=== PATIENT | female | born 1965 | race Caucasian/White ===

== ENCOUNTER 2019-07-15 09:58 | Outpatient (RCR) | payer MEDICARE, MEDICAID, SELFPAY | END 2019-08-13 00:01 | LOC: MPT 09:58 | PROVIDERS: Family Provider Family Medicine; Visit Provider Licensed Practical Nurse | DX: M51.17 Intervertebral disc disorders with radiculopathy, lumbosacral region (principal) | CPT/HCPCS: 97110; 97140; 97161; 97530 ×2 ==

== ENCOUNTER 2019-08-14 06:00 | Outpatient (RCR) | payer MEDICARE, MEDICAID, SELFPAY | END 2019-09-13 23:00 | disposition home or self-care (01) | LOC: MPO 06:00 | PROVIDERS: Family Provider Family Medicine; Visit Provider Family Medicine | DX: M51.36 Other intervertebral disc degeneration, lumbar region (principal) | CPT/HCPCS: 97110; 97140; 97530 ==

== ENCOUNTER 2019-09-09 09:10 | Emergency (ER) | payer MEDICARE, MEDICAID, SELFPAY ==
[2019-09-09 09:41] VITALS: BP 160/108; PULSE 73; RESP 20; TEMP 36.7; O2SAT 95; BMI 42.5
--- NOTE | 2019-09-09 10:05 | ED_ITS ---
HPI - Abdominal Pain General: Chief Complaint: Abdominal Pain Stated Complaint: Upper ABD pain, weak, n/v Time Seen by Provider: 09/09/19 10:02 History of Present Illness: HPI narrative: Betty is a 53-year-old morbidly obese white female who presents with a one-day history of epigastric pain, nausea vomiting and diarrhea. Patient states she's had her gallbladder removed and a total hysterectomy in the past. She states she doesn't feel nauseated and however when the pain hits she will vomit. Denies any blood in her stool or vomit. Associated Symptoms: Reports diarrhea, nausea and vomiting; Denies chills, dysuria and fever(s) Review of Systems Const: Denies: fever or chills Eyes: Denies: change in vision ENMT: Denies: throat pain Card: Reports: chest pain (epigastric); Denies: palpitations Resp: Denies: shortness of breath, productive cough or stridor GI: Reports: abdominal pain (epigastric), nausea, vomiting and diarrhea : Denies: flank pain, difficulty urinating or painful urination Musc: Denies: neck pain or back pain Skin/Breast: Denies: rash Neuro: Denies: headache Psych: Denies: anxiety PFSH ED PFSH: Statuses (acute, chronic, etc) shown below reflect problem list status as previously entered and may not be historically accurate Family History (Updated 09/06/19 @ 11:09 by Kacie Lozoya LPN) Grandmother Breast cancer Stroke Grandfather Heart disease Mother Parkinsons disease Social History (Updated 09/06/19 @ 11:12 by Kacie Lozoya LPN) Smoking and tobacco status: never smoked Alcohol intake: never Lives independently: Yes Household members: family Housing: House Marital status: / Current occupational status: disabled History of recent travel: No Physical Exam Const: COMMON NORMALS: no apparent distress, oriented x3 and no limitations HENMT: COMMON NORMALS: normocephalic and external nose normal HEAD & SCALP: normocephalic NOSE: external nose normal Eye: COMMON NORMALS: PERRL, EOMs intact bilaterally and conjunctivae normal CONJUNCTIVA: Yes conjunctivae normal PUPIL: Yes PERRL Neck/C-Spine: COMMON NORMALS: full ROM and no meningeal signs Chest: COMMONS NORMALS: inspection of chest normal Resp: COMMON NORMALS: normal respiratory effort and no retractions EFFORT & INSPECTION: Yes able to speak in complete sentences GI: COMMON NORMALS: normal to inspection, nondistended, normoactive bowel sounds and soft to palpation PALPATION: Yes soft and Yes tender (mild tenderness mid epigastric region) Back/Pelvis: COMMON NORMALS: thoracic and lumbar spine normal to inspection Extremity: COMMON NORMALS: normal to inspection and full ROM Neuro: COMMON NORMALS: oriented x3 and moves all extremities MENINGEAL SIGNS: Yes no meningeal signs Psych: COMMON NORMALS: mental status grossly normal, cooperative and affect normal Skin: COMMON NORMALS: no rashes or lesions noted GENERAL SKIN EXAM: no rashes or lesions noted Course Reevaluation(s): Reevaluation #1: patient reassessed. Discussed with her that her CT scan shows nothing acute. She does have some diverticulosis but no evidence of diverticulitis. Patient states she does suffer from intermittent heartburn which she treats with Tums. I advised her we will start her on a daily stomach acid medication as uncontrolled heartburn can lead to Gabriel's esophagus. She does not want any nausea medication at this time. She was more concerned about her heart. We'll discharge her home. Time: 12:34 Vital Signs: Vital signs: Vital Signs Temperature 98.0 F 09/09/19 09:41 Pulse Rate 73 09/09/19 09:41 Respiratory Rate 20 H 09/09/19 09:41 Blood Pressure 160/108 09/09/19 09:41 Pulse Oximetry 95 09/09/19 09:41 MDM - Abdominal Pain Differential Diagnosis: Differential diagnosis abdominal pain: Likely abdominal pain, calculus of kidney, gastroenteritis, pancreatitis and small bowel obstruction Medical Records: Attestation: I reviewed the patient's medical records. Lab Data: Attestation: I reviewed the patient's lab results. Lab results narrative: Labs show mild hematuria. Troponin is negative. Otherwise nothing acute. Labs: Lab Results 09/09/19 09/09/19 09/09/19 Range/Units 10:12 10:12 10:12 WBC 8.8 (4.0-10.0) 10^3/ uL RBC 4.99 (4.1-5.3) 10^6/u L Hgb 13.5 (11.5-15.3) g/dL Hct 43.1 (37.0-47.0) % MCV 86.4 (81-99) fL MCH 27.1 L (28.0-34.0) pg MCHC 31.3 (30.0-36.0) g/dL RDW 12.8 (12.1-15.1) % Plt Count 258 (130-400) 10^3/c mm MPV 10.3 (7.4-10.4) fL Neut % (Auto) 82.9 % Lymph % (Auto) 13.4 % [place] % (Auto) 2.5 % Eos % (Auto) 0.8 % Baso % (Auto) 0.2 % Neut # (Auto) 7.3 (1.8-7.7) 10^3/u L Lymph # (Auto) 1.2 (0.8-4.8) 10^3/u L [place] # (Auto) 0.2 (0.2-0.9) 10^3/u L Eos # (Auto) 0.1 (0.0-0.8) 10^3/u L Baso # (Auto) 0.0 (0.0-0.1) 10^3/u L Nucleated RBC % (a uto) 0 % Nucleated RBCs # 0.0 /100WBC Sodium 136 (136-145) mmol/L Potassium 4.3 (3.5-5.1) mmol/L Chloride 100 (98-107) mmol/L Carbon Dioxide 24 (22-29) mmol/L Anion Gap 16.3 (5-19) BUN 10 (6-20) mg/dL Creatinine 0.8 (0.5-0.9) mg/dL GFR Calculation 75.0 L (90-130) mL/min Glucose 156 H (74-109) mg/dL Calcium 10.3 (8.5-10.5) mg/dL Magnesium 2.0 (1.7-2.3) mg/dL Total Bilirubin 0.3 (0.15-1.2) mg/dL AST 15 (0-32) U/L ALT 19 (0-33) U/L Alkaline Phosphata se 80 (35-105) IU/L Troponin T Gen 5 n g/L 6 (0-10) ng/mL Total Protein 8.2 (6.6-8.7) g/dL Albumin 4.5 (3.5-5.2) g/dL Globulin 3.7 (1.3-4.6) g/dL Lipase (13-60) U/L Urine Color (Yellow) Urine Appearance (CLEAR) Urine pH (5-7) Ur Specific Gravit y (1.005-1.030) Urine Protein (Negative) Urine Glucose (UA) (Normal) Urine Ketones (Negative) Urine Occult Blood (Negative) Urine Nitrate (Negative) Urine Bilirubin (NEGATIVE) Urine Urobilinogen (Negative) mg/dL Ur Leukocyte Tavia ase (Negative) Urine RBC (0-2) /hpf Urine WBC (0-5) /hpf Ur Squamous Epith Cells (0-5) Urine Bacteria (NONE) 09/09/19 09/09/19 Range/Units 10:12 10:22 WBC (4.0-10.0) 10^3/ uL RBC (4.1-5.3) 10^6/u L Hgb (11.5-15.3) g/dL Hct (37.0-47.0) % MCV (81-99) fL MCH (28.0-34.0) pg MCHC (30.0-36.0) g/dL RDW (12.1-15.1) % Plt Count (130-400) 10^3/c mm MPV (7.4-10.4) fL Neut % (Auto) % Lymph % (Auto) % [place] % (Auto) % Eos % (Auto) % Baso % (Auto) % Neut # (Auto) (1.8-7.7) 10^3/u L Lymph # (Auto) (0.8-4.8) 10^3/u L [place] # (Auto) (0.2-0.9) 10^3/u L Eos # (Auto) (0.0-0.8) 10^3/u L Baso # (Auto) (0.0-0.1) 10^3/u L Nucleated RBC % (a uto) % Nucleated RBCs # /100WBC Sodium (136-145) mmol/L Potassium (3.5-5.1) mmol/L Chloride (98-107) mmol/L Carbon Dioxide (22-29) mmol/L Anion Gap (5-19) BUN (6-20) mg/dL Creatinine (0.5-0.9) mg/dL GFR Calculation (90-130) mL/min Glucose (74-109) mg/dL Calcium (8.5-10.5) mg/dL Magnesium (1.7-2.3) mg/dL Total Bilirubin (0.15-1.2) mg/dL AST (0-32) U/L ALT (0-33) U/L Alkaline Phosphata se (35-105) IU/L Troponin T Gen 5 n g/L (0-10) ng/mL Total Protein (6.6-8.7) g/dL Albumin (3.5-5.2) g/dL Globulin (1.3-4.6) g/dL Lipase 27 (13-60) U/L Urine Color Yellow (Yellow) Urine Appearance Clear (CLEAR) Urine pH 6.0 (5-7) Ur Specific Gravit y 1.015 (1.005-1.030) Urine Protein Neg (Negative) Urine Glucose (UA) Norm (Normal) Urine Ketones Negative (Negative) Urine Occult Blood 2+ H (Negative) Urine Nitrate Negative (Negative) Urine Bilirubin Neg (NEGATIVE) Urine Urobilinogen Norm (Negative) mg/dL Ur Leukocyte Tavia ase Negative (Negative) Urine RBC 0-4 H (0-2) /hpf Urine WBC None (0-5) /hpf Ur Squamous Epith Cells 0-4 H (0-5) Urine Bacteria Trace (NONE) Imaging Data ^: CT Abd/Pel: Attestation: I personally reviewed and interpreted this imaging study as follows: Radiologist's impression: IMPRESSION: 1. No evidence for appendicitis or renal stone/obstruction. 2. Prior cholecystectomy and hysterectomy. 3. Fat-containing umbilical hernia. 4. Descending and sigmoid diverticulosis without acute diverticulitis. Discharge Plan Discharge Patient Disposition: Home, Self-Care Clinical Impression: Gastroenteritis Gastroesophageal reflux disease Qualifiers: Esophagitis presence: esophagitis presence not specified Qualified Code(s): K21.9 - Gastro-esophageal reflux disease without esophagitis Condition: Stable Prescriptions: New omeprazole 20 mg capsule,delayed release(DR/EC) 20 mg PO BID Qty: 60 RF: 0 No Action tizanidine 4 mg capsule 4 mg PO TID PRNRF: 0 meloxicam 7.5 mg tablet 7.5 mg PO QDAY RF: 0 lisinopril 5 mg tablet 5 mg PO QDAY RF: 0 montelukast 10 mg tablet 10 mg PO QDAY RF: 0 triamcinolone acetonide 0.1 % cream 1 applic TOPICAL BID PRNRF: 0 Discharge Orders: Discharge Order (Routine); Ordered 09/09/19 Ordered By: Pretty Brown Referrals: Katty Oneill MD [Family Provider] - Discharge Diet: Usual diet Discharge Activity: Resume usual activity Patient Instructions: Diet for Ulcers and Gastritis (ED), Gastroesophageal Reflux Disease (ED) Activity Restrictions/Additional Instructions: Drink plenty of fluids. Avoid spicy and acidic foods for the next 2 days. Begin taking omeprazole as directed. Follow up with their family doctor and discuss outpatient EGD referral with him at that time. Return if any problems. 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
--- NOTE | 2019-09-09 10:07 | ECG_ITS ---
Measurements Intervals [place] Rate: 68 P: 5 MD: 158 QRS: 31 QRSD: 94 T: 40 QT: 400 QTc: 428 SINUS RHYTHM No previous ECG available for comparison Electronically Signed On 09-09-2019 17:51:59 COMMUNITY PRODUCT SPECIALIST by Laura Quispe M.D. [email or web address]
[2019-09-09 10:18] LABS: Basophils % 0.2 %; Eosinophils # 0.1 10^3/uL (0.0-0.8); Eosinophils % 0.8 %; Hematocrit 43.1 % (37.0-47.0); Hemoglobin 13.5 g/dL (11.5-15.3); Lymphocytes # 1.2 10^3/uL (0.8-4.8); Lymphocytes % 13.4 %; Mean Corpuscular HGB Conc 31.3 g/dL (30.0-36.0); Mean Corpuscular Hemoglobin 27.1 pg (28.0-34.0); Mean Corpuscular Volume 86.4 fL (81-99); Mean Platelet Volume 10.3 fL (7.4-10.4); Monocytes # 0.2 10^3/uL (0.2-0.9); Monocytes % 2.5 %; Neutrophils # 7.3 10^3/uL (1.8-7.7); Neutrophils % 82.9 %; Nucleated Red Blood Cells % 0 %; Platelet Count 258 10^3/cmm (130-400); Red Blood Count 4.99 10^6/uL (4.1-5.3); Red Cell Distribution Width 12.8 % (12.1-15.1); White Blood Count 8.8 10^3/uL (4.0-10.0)
--- NOTE | 2019-09-09 10:21 | PC.NURSE ---
Patient to restroom for urine collection
[2019-09-09 10:33] LABS: Alanine Aminotransferase 19 U/L (0-33); Albumin Level 4.5 g/dL (3.5-5.2); Alkaline Phosphatase 80 IU/L (35-105); Anion Gap 16.3 (5-19); Aspartate Amino Transferase 15 U/L (0-32); Blood Urea Nitrogen 10 mg/dL (6-20); Calcium 10.3 mg/dL (8.5-10.5); Carbon Dioxide 24 mmol/L (22-29); Chloride 100 mmol/L (98-107); Globulin 3.7 g/dL (1.3-4.6); Glucose 156 mg/dL (74-109); Potassium 4.3 mmol/L (3.5-5.1); Sodium 136 mmol/L (136-145); Total Bilirubin 0.3 mg/dL (0.15-1.2); Total Protein 8.2 g/dL (6.6-8.7)
[2019-09-09 10:35] LABS: Troponin T (5th) Once 6 ng/mL (0-10)
[2019-09-09 10:52] LABS: Add Urine Microscopic? YES; Bilirubin Urine Neg (NEGATIVE); Blood Urine 2+ (Negative); Glucose Urine UA Norm (Normal); Ketones Urine Negative (Negative); Leukocyte Esterase Urine Negative (Negative); Nitrate Urine Negative (Negative); Protein Urine Neg (Negative); Specific Gravity, Urine 1.015 (1.005-1.030); Urine Appearance Clear (CLEAR); Urine Color Yellow (Yellow); Urobilinogen Urine Norm (Negative)
[2019-09-09 11:01] LABS: Add Urine Culture? No; Bacteria Urine TRACE; RBC Urine 0-4 /hpf (0-2); Squamous Epithelial Cell Urine 0-4 (0-5)
--- NOTE | 2019-09-09 11:05 | CT_ITS ---
WS: [id number] CT ABDOMEN AND PELVIS NONCONTRAST HISTORY: hematuria, nausea TECHNIQUE: Imaging performed through the abdomen and pelvis. Coronal and sagittal reformats are submi tted. All CT scans at [facility] use at least one of these dose optimization techniques: automated exposure control; mA and/or kV adjustment per patient size (includes targeted exams where d ose is matched to clinical indication); or iterative reconstruction. DLP: 1766.92 mGy.cm COMPARISON: None available. Lower thorax: Lung bases are clear. No hiatal hernia. Liver: Normal, no mass or intrahepatic dilatation. Gallbladder: Prior cholecystectomy. Pancreas: Normal. Spleen: Normal. Adrenal glands: Normal. Right kidney: Normal size with no stones, masses or atrophy. Left kidney: Normal size with no stones, mass or atrophy. Abdominal aorta and IVC are unremarkable. No free fluid, intraperitoneal air or significant lymphadenopathy. GI tract: Normal appendix. No GI tract obstruction. Numerous scattered diverticula in the descending and sigmoid colon. No evidence for acute diverticulitis. Abdominal wall: Small fat-containing umbilical hernia. Pelvis: Prior hysterectomy. No free fluid or adenopathy in the pelvis. Nondistended urinary bladder. Osseous structures: Unremarkable. CT/CT kidney stone [id number] IMPRESSION: 1. No evidence for appendicitis or renal stone/obstruction. 2. Prior cholecystectomy and hysterectomy. 3. Fat-containing umbilical hernia. 4. Descending and sigmoid diverticulosis without acute diverticulitis.
--- NOTE | 2019-09-09 11:10 | PC.NURSE ---
To CT via stretcher
[2019-09-09 11:12] LABS: Lipase 27 U/L (13-60)
[2019-09-09 12:50] VITALS: BP 145/88; PULSE 68; RESP 14; O2SAT 97
== END 2019-09-09 12:50 | disposition home or self-care (01) ==
PROVIDERS: Emergency Provider Physician Assistant; Family Provider Family Medicine
DX: K52.9 Noninfective gastroenteritis and colitis, unspecified (principal); K21.9 Gastro-esophageal reflux disease without esophagitis
CPT/HCPCS: 36415; 74176; 80053; 81001; 83690; 83735; 84484; 85025; 93005; 99282

== ENCOUNTER 2019-09-14 06:00 | Outpatient (RCR) | payer MEDICARE, MEDICAID, SELFPAY | END 2019-10-12 23:59 | disposition home or self-care (01) | LOC: MPT 06:00 | PROVIDERS: Family Provider Family Medicine; Referring Provider Licensed Practical Nurse; Visit Provider Licensed Practical Nurse | DX: M51.17 Intervertebral disc disorders with radiculopathy, lumbosacral region (principal) | CPT/HCPCS: 97110; 97140; 97530 ==

== ENCOUNTER → 2019-10-02 14:12 | Outpatient (BNVA) | payer MEDICARE, MEDICAID, SELFPAY | PROVIDERS: Family Provider Family Medicine; PCP Family Medicine; Referring Provider Licensed Practical Nurse; Visit Provider Psychiatry & Neurology Neurology | DX: M54.2 Cervicalgia (principal); M79.601 Pain in right arm; M79.602 Pain in left arm; Z87.891 Personal history of nicotine dependence | CPT/HCPCS: 95886; 95910 ==

== ENCOUNTER 2019-10-07 08:22 | Outpatient (CLI) | payer MEDICARE, MEDICAID, SELFPAY ==
--- NOTE | 2019-10-07 08:47 | MR_ITS ---
WS: [id number] MRI CERVICAL SPINE HISTORY: Cervical spine pain. HX ACDFF COMPARISON: 07/05/2019 Straightening of the normal lumbar lordosis. 2 mm anterolisthesis of C4. Anterior cervical fusion fro m C5 to C7 is intact. No edema around the hardware. Complete ankylosis at C5-6 and C6-7 disc spaces. Signal within the cervical cord is normal. Visualized posterior fossa is unremarkable. Craniocervical junction, C1 and C2 relationship, odontoid process and soft tissues are normal. C2-C3: Normal. C3-C4: Mild osteophytic ridging and facet arthritis. Mild RIGHT foraminal narrowing. C4-C5: Slight unroofing of the disc due to anterolisthesis of C4. Slight contact on the cord with a c entral disc protrusion. Bilateral facet arthropathy. Mild central stenosis. C5-C6: Mild annular disc bulging and osteophytic ridging. Contact on the ventral cord with no displac ement. Mild central and bilateral foraminal stenosis. C6-C7: Mild asymmetric disc bulging to the LEFT. No significant stenosis. C7-T1: Normal. Cluster of calcifications just to the RIGHT of the C2 vertebral body has been present on prior studie s and may be granulomatous calcifications. Unchanged since at least 10/24/2017. MR/MR cervical spin wo con* [id number] IMPRESSION: 1. Prior anterior cervical fusion from C5 to C7 with ankylosis at the disc spa anuel. No complication or change. 2. Less than 2 mm anterolisthesis of C4. 3. Mild central and bilateral foraminal narrowing at C4-5. No significant prog ression. 4. Mild disc osteophyte encroachment upon the ventral cord at C4-5 and C5-6 wi thout displacement.
--- NOTE | 2019-10-07 09:30 | XR_ITS ---
WS: [id number] LATERAL CERVICAL SPINE: 3 view. Lateral radiographs are performed in upright neutral, flexion and extension to the patient's toleranc e. HISTORY: Cervical spine pain. HX ACDFF COMPARISON: 07/05/2019 Prior anterior cervical fusion extending from C5 through C7. Plate and screws are intact. No lucency around the hardware. There is very slight anterolisthesis of C4 by less than 2 mm. With flexion and e xtension no significant change. Complete ankylosis across the C5-6 and C5 7 disc spaces. Stable calci fication anterior to the upper cervical spine noted to be in the RIGHT paravertebral soft tissues on prior studies. XR/XR cervical spine fl/ex [id number] IMPRESSION: 1. Stable anterior cervical fusion from C5 to C7 with complete ankylosis acros s the disc spaces. 2. Less than 2 mm anterolisthesis of C4 without instability.
== END 2019-10-07 08:23 | disposition home or self-care (01) ==
PROVIDERS: Family Provider Family Medicine; PCP Family Medicine; Visit Provider Licensed Practical Nurse
DX: M43.22 Fusion of spine, cervical region (principal); M50.020 Cervical disc disorder with myelopathy, mid-cervical region, unspecified level; M25.78 Osteophyte, vertebrae; Z98.1 Arthrodesis status
CPT/HCPCS: 72040; 72141

== ENCOUNTER 2019-10-13 06:00 | Outpatient (RCR) | payer MEDICARE, MEDICAID, SELFPAY | END 2019-11-12 23:59 | disposition home or self-care (01) | LOC: MPT 06:00 | PROVIDERS: Family Provider Family Medicine; PCP Family Medicine; Referring Provider Licensed Practical Nurse; Visit Provider Licensed Practical Nurse | DX: M51.17 Intervertebral disc disorders with radiculopathy, lumbosacral region (principal) | CPT/HCPCS: 97112; 97164 ==

== ENCOUNTER 2020-02-06 11:21 | Outpatient (CLI) | payer MEDICARE, MEDICAID, SELFPAY ==
--- NOTE | 2020-02-06 11:30 | MM_ITS ---
WS: [id number] BILATERAL SCREENING DIGITAL MAMMOGRAM WITH CAD HISTORY: screening breast cancer COMPARISON: 01/25/2016 Bilateral CC and MLO views submitted. Computer aided detection analyzed. Breast composition: There are scattered areas of fibroglandular density. No suspicious masses, microc alcifications or architectural distortion. MM/[place] [id number] IMPRESSION: BI-RADS: 1-Negative FOLLOW UP: 1 Year Follow-up
== END 2020-02-06 11:22 | disposition home or self-care (01) ==
LOC: RADSHAW 11:28
PROVIDERS: PCP Family Medicine; Visit Provider Family Medicine
DX: Z12.31 Encounter for screening mammogram for malignant neoplasm of breast (principal)
CPT/HCPCS: 77067

== ENCOUNTER → 2020-11-19 10:51 | Outpatient (BNVA) | payer MEDICARE, MEDICAID, SELFPAY | PROVIDERS: PCP Family Medicine; Referring Provider Family Medicine; Visit Provider Orthopaedic Surgery | DX: M54.9 Dorsalgia, unspecified (principal) | CPT/HCPCS: 72110 ==

== ENCOUNTER → 2020-12-15 10:44 | Outpatient (BNVA) | payer MEDICARE, MEDICAID, SELFPAY | PROVIDERS: PCP Family Medicine; Referring Provider Orthopaedic Surgery; Visit Provider Anesthesiology Pain Medicine | DX: M48.062 Spinal stenosis, lumbar region with neurogenic claudication (principal); M47.816 Spondylosis without myelopathy or radiculopathy, lumbar region; M51.36 Other intervertebral disc degeneration, lumbar region; M50.020 Cervical disc disorder with myelopathy, mid-cervical region, unspecified level; Z98.1 Arthrodesis status | CPT/HCPCS: 99205 ==

== ENCOUNTER → 2020-12-22 13:14 | Outpatient (BNVA) | payer MEDICARE, MEDICAID, SELFPAY | PROVIDERS: PCP Family Medicine; Visit Provider Anesthesiology Pain Medicine | DX: M47.816 Spondylosis without myelopathy or radiculopathy, lumbar region (principal); M48.062 Spinal stenosis, lumbar region with neurogenic claudication | CPT/HCPCS: 64493; 64494; J3490 ==

== ENCOUNTER → 2021-01-08 09:12 | Outpatient (BNVA) | payer MEDICARE, MEDICAID, SELFPAY | PROVIDERS: PCP Family Medicine; Visit Provider Anesthesiology Pain Medicine | DX: M48.062 Spinal stenosis, lumbar region with neurogenic claudication (principal); M47.816 Spondylosis without myelopathy or radiculopathy, lumbar region; M51.36 Other intervertebral disc degeneration, lumbar region; M50.020 Cervical disc disorder with myelopathy, mid-cervical region, unspecified level; Z98.1 Arthrodesis status | CPT/HCPCS: 99214 ==

== ENCOUNTER 2021-04-30 07:47 | Outpatient (CLI) | payer MEDICARE, MEDICAID, SELFPAY ==
[2021-04-30 08:25] VITALS: BP 130/78; PULSE 78; RESP 16; TEMP 36.6; O2SAT 96; BMI 44.2
[2021-04-30 09:04] VITALS: BP 136/84; PULSE 86; RESP 18; O2SAT 96
[2021-04-30 10:03] VITALS: BP 121/72; PULSE 77; RESP 18; TEMP 36.7; O2SAT 95
== END 2021-04-30 07:48 | disposition home or self-care (01) ==
PROVIDERS: PCP Family Medicine; Visit Provider Nurse Practitioner Family
DX: U07.1 COVID-19 (principal)
CPT/HCPCS: 96365

== ENCOUNTER → 2021-05-20 13:28 | Outpatient (BNVA) | payer MEDICARE, MEDICAID, SELFPAY | PROVIDERS: PCP Family Medicine; Visit Provider Family Medicine | DX: I10 Essential (primary) hypertension (principal); Z13.6 Encounter for screening for cardiovascular disorders | CPT/HCPCS: 80053; 80061 ==

== ENCOUNTER → 2021-06-30 10:30 | Outpatient (BNVA) | payer MEDICARE, MEDICAID, SELFPAY | PROVIDERS: PCP Family Medicine; Visit Provider Family Medicine | DX: M79.672 Pain in left foot (principal); M77.8 Other enthesopathies, not elsewhere classified; M72.2 Plantar fascial fibromatosis | CPT/HCPCS: 73630 ==

== ENCOUNTER → 2022-02-07 09:36 | Outpatient (BNVA) | payer MEDICARE, MEDICAID, SELFPAY | PROVIDERS: PCP Family Medicine; Visit Provider Family Medicine | DX: I10 Essential (primary) hypertension (principal) | CPT/HCPCS: 80048 ==

== ENCOUNTER → 2022-05-19 10:18 | Outpatient (BNVA) | payer MEDICARE, MEDICAID, SELFPAY | PROVIDERS: PCP Family Medicine; Visit Provider Family Medicine | DX: I10 Essential (primary) hypertension (principal); Z13.220 Encounter for screening for lipoid disorders; Z13.6 Encounter for screening for cardiovascular disorders | CPT/HCPCS: 80053; 80061 ==

== ENCOUNTER 2022-06-01 09:21 | Outpatient (CLI) | payer MEDICARE, MEDICAID, SELFPAY ==
--- NOTE | 2022-06-01 09:42 | MM_ITS ---
WS: [id number] Bilateral screening 3D tomosynthesis digital mammogram, 06/01/2022 Clinical Data: SCREEN Comparison: 02/06/2020, 01/25/2016, 01/26/2011. Findings: The breast parenchymal pattern shows fibroglandular tissue. No spiculated masses or clustered calcifi cations are seen. There are no secondary signs of carcinoma. MM/[place] [id number] Impression: 1. Negative bilateral mammogram unchanged. 2. Recommend annual screening mammograms. BIRADS: 1-Negative FOLLOW UP: 1 Year Follow-up The CAD program checker was used.
== END 2022-06-01 09:22 | disposition home or self-care (01) ==
LOC: RAD 09:21
PROVIDERS: PCP Family Medicine; Visit Provider Family Medicine
DX: Z12.31 Encounter for screening mammogram for malignant neoplasm of breast (principal)
CPT/HCPCS: 77063; 77067

== ENCOUNTER → 2022-11-16 10:26 | Outpatient (BNVA) | payer MEDICARE, MEDICAID, SELFPAY | PROVIDERS: PCP Family Medicine; Visit Provider Family Medicine | DX: I10 Essential (primary) hypertension (principal); K21.9 Gastro-esophageal reflux disease without esophagitis; J44.9 Chronic obstructive pulmonary disease, unspecified; K29.70 Gastritis, unspecified, without bleeding; M48.062 Spinal stenosis, lumbar region with neurogenic claudication; K92.1 Melena | CPT/HCPCS: 80053; 85025 ==

== ENCOUNTER → 2022-12-20 09:45 | Outpatient (BNVA) | payer MEDICARE, MEDICAID, SELFPAY | PROVIDERS: PCP Family Medicine; Visit Provider Surgery | DX: K92.1 Melena (principal); K21.9 Gastro-esophageal reflux disease without esophagitis | CPT/HCPCS: 99203 ==

== ENCOUNTER 2023-01-18 06:04 | Day surgery (SDC) | payer MEDICARE, MEDICAID, SELFPAY ==
[2023-01-16 11:34] VITALS: BMI 44.9
[2023-01-18 06:23] VITALS: BP 144/88; PULSE 68; RESP 16; TEMP 36.1; O2SAT 98
[2023-01-18] MEDS: sodium chloride 0.9% 1,000 ML 30 ML IV (06:35)
--- NOTE | 2023-01-18 07:12 | P.ANESASSM_ITS ---
Pre-Anesthetic Assessment Height/Weight: Height 1.6 m Weight 115.212 kg Temp Pulse Resp BP Pulse Ox O2 Del Method 97 F L 68 16 144/88 98 Room Air 01/18/23 06:23 01/18/23 06:23 01/18/23 06:23 01/18/23 06:23 01/18/23 06:23 01/18/23 06:23 Preop Diagnosis: melena screening Gerd Operation Date: 01/18/23 08:00 Proposed Procedures p 42607 EGD 68677 Colon K92.1,Z12.11,K21.9(Not Applicable) - DO tyree Jama Colonoscopy(Not Applicable) - Sachin Cortez DO Familial anesthetic complications: none Was Beta Attila taken within 24 hours: N/A Was Clonidine taken within 24 hours: N/A Last intake: Intake Last Liquid Date 01/17/23 Last Liquid Time 22:00 Last Solid Date 01/16/23 Last Solid Time 21:00 Social No alcohol and No tobacco (history quit 1998) Exam alert, oriented x 3, clear to auscultation bilaterally and regular rate & rhythm Airway Submandibular: within normal limits Cervical ROM: within normal limits Mallampati: Class II Dentition: full Pulmonary Chronic Obstructive Pulmonary Disease CV/HEM Arrythmia and Hypertension leaky valve conservator artifacts seen last year None reported Hepatic None reported GI Gastroesophageal Reflux Disease (controlled off protonix patient says i was feeling better ) Metabolic Morbid Obesity Musc/skel Fibromyalgia, Lower Back Pain and Osteoarthritis/DJD Neuropsych None reported Anesthetic Plan ASA status: 3 Anesthesia: MAC Risk of > 500 ml blood loss (7ml/kg in children): No Medications/Allergies Home Medications Medication Instructions Recorded Confirmed Last Taken Type miscellaneous medical supply See Rx Instructions miscellaneous 10/14/20 01/16/23 01/16/23 Rx .COMPLEX #1 ea ascorbic acid (vitamin C) 500 mg 500 mg PO DAILY 04/29/21 01/16/23 1 Month Ago History capsule ~12/16/22 [id number] 250 1 tab PO Q6H PRN Migraine Headache 04/29/21 01/16/23 1 Month Ago History mg-250 mg-65 mg tablet (Excedrin ~12/16/22 Extra Strength) cholecalciferol (vitamin D3) 25 25 mcg PO DAILY 04/29/21 01/16/23 1 Month Ago History mcg (1,000 unit) capsule ~12/16/22 cyanocobalamin (vitamin B-12) 500 500 mcg PO DAILY 04/29/21 01/16/23 1 Month Ago History mcg tablet ~12/16/22 montelukast 10 mg tablet 10 mg PO DAILY 90 days #90 tabs 02/07/22 01/16/23 1 Week Ago Rx ~01/09/23 cyclobenzaprine 5 mg tablet 10 mg PO TID PRN muscle spasm #30 11/16/22 01/16/23 01/14/23 Rx tabs pantoprazole 40 mg tablet,delayed 40 mg PO BID 90 days #180 tabs 11/16/22 01/16/23 1 Week Ago Rx release ~01/09/23 valsartan 320 mg tablet 320 mg PO DAILY 90 days #90 tabs 11/16/22 01/18/23 01/17/23 Rx Allergies Allergy/AdvReac Type Severity Reaction Status Date / Time No Known Allergies Allergy Verified 01/16/23 11:25 Current Medications Generic Name Dose Route Start Last Admin Trade Name Freq PRN Reason Stop Dose Admin Sodium Chloride 1,000 mls @ 30 mls/hr 01/18/23 06:30 01/18/23 06:35 Sodium Chloride 0.9% IV 01/19/23 06:29 30 mls/hr .Q24H SANGEETA Administration PFSH Anesthesia Medical History CAD (coronary artery disease) Cervical disc disorder with myelopathy of mid-cervical region Chronic obstructive pulmonary disease, unspecified Degenerative disc disease, lumbar JOSE (generalized anxiety disorder) GERD (gastroesophageal reflux disease) History of COVID-19 Hypersomnia Hypertension Lisinopril caused cough Mitral valve disease Seasonal allergies Surgical History H/O cervical spinal arthrodesis History of cervical spinal surgery [facility] C5-C6, C6-C7 ACDFF History of cholecystectomy History of hernia repair History of hysterectomy History of nasal sinusotomy History of tubal ligation Family History Grandmother Breast cancer Stroke Grandfather Heart disease Mother Parkinsons disease Social History Smoking and tobacco status: former smoker Alcohol intake: never Substance/Drug Use: never Lives independently: Yes Household members: family Housing: House Marital status: / Current occupational status: disabled Female Reproductive History Spontaneous abortions: No Data Anesthesia Cardiac Studies: No Data to Display
--- NOTE | 2023-01-18 08:17 | W.PM.OPSUD ---
Surgery/Procedure H&P Update DATE OF PROCEDURE: January 18, 2023 DATE H&P PERFORMED: 12/20/22 H&P UPDATE INFORMATION: I have reviewed H&P completed within last 30 days, I have examined patient prior to procedure and No changes to prior documentation PREOP DIAGNOSIS: melena screening Gerd PLANNED PROCEDURE: Operation Date: 01/18/23 08:00 Proposed Procedures p 03419 EGD [id number] Colon K92.1,Z12.11,K21.9(Not Applicable) - DO tyree Jama Colonoscopy(Not Applicable) - Sachin Cortez DO
[2023-01-18] MEDS: EPINEPHrine 1 mg/mL INJ XX (08:29)
[2023-01-18 08:47] VITALS: BP 111/77; PULSE 83; RESP 16; TEMP 36.1; O2SAT 95
[2023-01-18] MEDS: ondansetron 2 mg/ML SDV 2 mL 4 MG IVP (09:00)
[2023-01-18 09:02] VITALS: BP 160/93; PULSE 78; RESP 17; TEMP 36.1; O2SAT 97
--- NOTE | 2023-01-18 13:16 | ANE.PACU2 ---
Inpatient post-anesthesia follow up: Airway intact: Yes Vital signs: Temperature 97.0 F Pulse Rate 78 Respiratory Rate 17 Blood Pressure 160/93 Pulse Oximetry 97 Oxygen Delivery Me thod Room Air Oxygen Flow Rate Fraction of Inspir ed Oxygen Hydration adequate: Yes Nausea and vomiting: Yes Pain level: 1 Mental status: Baseline
== END 2023-01-18 09:24 | disposition home or self-care (01) ==
PROVIDERS: PCP Family Medicine; Visit Provider Surgery
PROC: 0DJ08ZZ Inspection of Upper Intestinal Tract, Via Natural or Artificial Opening Endoscopic (ICD-10-PCS; CPT 43235; principal; 2023-01-18 08:00)
PROC: 0DJD8ZZ Inspection of Lower Intestinal Tract, Via Natural or Artificial Opening Endoscopic (ICD-10-PCS; CPT 45378; 2023-01-18 08:00)
DX: K92.1 Melena (principal); K21.9 Gastro-esophageal reflux disease without esophagitis; B96.81 Helicobacter pylori [H. pylori] as the cause of diseases classified elsewhere; K63.5 Polyp of colon; Z87.891 Personal history of nicotine dependence; E66.01 Morbid (severe) obesity due to excess calories; Z68.42 Body mass index [BMI] 45.0-49.9, adult; I10 Essential (primary) hypertension; Z79.82 Long term (current) use of aspirin; K29.70 Gastritis, unspecified, without bleeding; K57.30 Diverticulosis of large intestine without perforation or abscess without bleeding
CPT/HCPCS: 43239; 43255; 45385; 88305; 96374; J0171; J2405; J2704; J7030

== ENCOUNTER → 2023-01-31 17:02 | Outpatient (BNVA) | payer MEDICARE, MEDICAID, SELFPAY | PROVIDERS: PCP Family Medicine; Visit Provider Surgery | DX: Z09 Encounter for follow-up examination after completed treatment for conditions other than malignant neoplasm (principal); K29.70 Gastritis, unspecified, without bleeding; B96.81 Helicobacter pylori [H. pylori] as the cause of diseases classified elsewhere; K63.5 Polyp of colon | CPT/HCPCS: 99212 ==

== ENCOUNTER → 2023-07-17 09:25 | Outpatient (BNVA) | payer MEDICARE, MEDICAID, SELFPAY | PROVIDERS: PCP Family Medicine; Visit Provider Family Medicine | DX: I10 Essential (primary) hypertension (principal); Z13.220 Encounter for screening for lipoid disorders; Z13.6 Encounter for screening for cardiovascular disorders | CPT/HCPCS: 73502; 80048; 80061 ==

== ENCOUNTER 2023-08-17 09:07 | Outpatient (CLI) | payer MEDICARE, MEDICAID, SELFPAY ==
--- NOTE | 2023-08-17 09:00 | MM_ITS ---
WS: [id number] BILATERAL SCREENING DIGITAL TOMOSYNTHESIS MAMMOGRAM WITH CAD HISTORY: Z12.39 - Encounter for other screening for malignant neop... COMPARISON: 06/01/2022 and 02/06/2020 Bilateral CC and MLO views with tomosynthesis and synthetic mammography submitted. Computer aided det ection analyzed. Breast composition: There are scattered areas of fibroglandular density. No suspicious masses, microc alcifications or architectural distortion. IMPRESSION: MM/[place] [id number] BI-RADS: 1-Negative FOLLOW UP: 1 Year Follow-up
== END 2023-08-17 09:08 | disposition home or self-care (01) ==
LOC: MOBLMAM 09:14
PROVIDERS: PCP Family Medicine; Visit Provider Family Medicine
DX: Z12.31 Encounter for screening mammogram for malignant neoplasm of breast (principal)
CPT/HCPCS: 77063; 77067

== ENCOUNTER → 2023-09-26 08:03 | Outpatient (BNVA) | payer MEDICARE, MEDICAID, SELFPAY | PROVIDERS: PCP Family Medicine; Visit Provider Family Medicine | DX: I10 Essential (primary) hypertension (principal); R07.9 Chest pain, unspecified; I08.1 Rheumatic disorders of both mitral and tricuspid valves | CPT/HCPCS: 93005 ==

== ENCOUNTER 2023-10-06 11:51 | Outpatient (CLI) | payer MEDICARE, MEDICAID, SELFPAY ==
--- NOTE | 2023-10-06 12:00 | USCV_ITS ---
Yolande Jackson Age: 57 Gender: F : 1965 Exam Date: 10/06/2023 12:08 Ordering Phys: Katty Oneill MD Technologist: Sameer Ashby Exam Location: [facility] – [place] Indication: rheumatic mitral valve BP: 172 / 102 HR: 87 Rhythm: Sinus Technical Quality: Adequate MEASUREMENTS (Male / Female) Normal Values 2D ECHO LVOT Diameter 2.0 cm LV Ejection Fraction MOD 2C 66.8 % LV Ejection Fraction 2C AL 0.0 % LA Diameter 3.3 cm Aorta at Sinotubular Diameter 2.7 cm IVC Diameter 1.6 cm M-MODE LA Ao Ratio MM 1.4 AV Cusp Separation MM 1.9 cm DOPPLER AV Peak Velocity 142.0 cm/s LVOT Peak Velocity 84.0 cm/s AV Area Cont Eq vti 2.1 cm squared AV Area Cont Eq pk 1.9 cm squared MV Peak Velocity 71.0 cm/s MV Area PHT 4.1 cm squared Mitral E to A Ratio 0.9 TV Peak Velocity 229.0 cm/s PV Peak Velocity 101.0 cm/s RV Ejection Time 0.3 s FINDINGS Left Ventricle Left ventricle is normal size. LV systolic function is normal with EF of 55 to 60%. No regional wall motion normalities are seen. Right Ventricle Normal in size and function Right Atrium Normal in size Left Atrium Normal in size Mitral Valve Structurally normal mitral valve. Mild mitral regurgitation Aortic Valve Structurally normal aortic valve. No significant stenosis or regurgitation. Tricuspid Valve Mild tricuspid regurgitation. Insufficient TR jet to evaluate RVSP. Pulmonic Valve Not well visualized Pericardium Normal Aorta Normal in size IVC Appears to be normal CONCLUSIONS LV systolic function is normal with EF of 55 to 60%. Mild mitral regurgitation Mild tricuspid regurgitation No comparison studies are available. Jose Finch MD (Electronically Signed) Final Date: 07 October 2023 14:29 S
== END 2023-10-06 11:52 | disposition home or self-care (01) ==
LOC: RAD 11:51
PROVIDERS: PCP Family Medicine; Visit Provider Family Medicine
DX: I05.9 Rheumatic mitral valve disease, unspecified (principal); R07.9 Chest pain, unspecified
CPT/HCPCS: 93306

== ENCOUNTER → 2023-11-21 12:41 | Outpatient (BNVA) | payer MEDICARE, MEDICAID, SELFPAY | PROVIDERS: PCP Family Medicine; Referring Provider Family Medicine; Visit Provider Internal Medicine | DX: R07.9 Chest pain, unspecified (principal); I10 Essential (primary) hypertension; I05.9 Rheumatic mitral valve disease, unspecified; Z87.891 Personal history of nicotine dependence | CPT/HCPCS: 93005; 99204 ==

== ENCOUNTER → 2024-04-16 15:53 | Outpatient (BNVA) | payer MEDICARE, MEDICAID, SELFPAY | PROVIDERS: PCP Family Medicine; Referring Provider Family Medicine; Visit Provider Family Medicine | DX: M25.512 Pain in left shoulder (principal) | CPT/HCPCS: 73030 ==

== ENCOUNTER → 2024-04-24 09:38 | Outpatient (BNVA) | payer MEDICARE, MEDICAID, SELFPAY | PROVIDERS: PCP Family Medicine; Visit Provider Family Medicine | DX: I10 Essential (primary) hypertension (principal) | CPT/HCPCS: 80048; 80061 ==

== ENCOUNTER → 2024-04-29 08:30 | Outpatient (BNVA) | payer MEDICARE, MEDICAID, SELFPAY | PROVIDERS: PCP Family Medicine; Visit Provider Nurse Practitioner | DX: M77.12 Lateral epicondylitis, left elbow (principal); M19.012 Primary osteoarthritis, left shoulder | CPT/HCPCS: 99204 ==

== ENCOUNTER → 2024-05-27 09:45 | Outpatient (BNVA) | payer MEDICARE, MEDICAID, SELFPAY | PROVIDERS: PCP Family Medicine; Visit Provider Nurse Practitioner | DX: M77.12 Lateral epicondylitis, left elbow (principal); M19.012 Primary osteoarthritis, left shoulder; R03.0 Elevated blood-pressure reading, without diagnosis of hypertension | CPT/HCPCS: 99213 ==

== ENCOUNTER 2024-10-31 08:51 | Outpatient (CLI) | payer MEDICARE, MEDICAID, SELFPAY ==
--- NOTE | 2024-10-31 09:00 | MM_ITS ---
WS: [id number] BILATERAL SCREENING DIGITAL TOMOSYNTHESIS MAMMOGRAM WITH CAD HISTORY: SCREENING COMPARISON: 08/17/2023, 06/01/2022 Bilateral CC and MLO views with tomosynthesis and synthetic mammography submitted. Computer aided detection analyzed. Breast composition: The breasts are almost entirely fatty. No suspicious masses, microcalcifications or architectural distortion. Benign scattered calcifications. MM/MM scr BI tomosynthesis [id number] IMPRESSION: BI-RADS: 2 - Benign. FOLLOW UP: 1 Year Follow-up
== END 2024-10-31 08:52 | disposition home or self-care (01) ==
LOC: MOBLMAM 08:54
PROVIDERS: PCP Family Medicine; Visit Provider Family Medicine
DX: Z12.31 Encounter for screening mammogram for malignant neoplasm of breast (principal); R92.313 Mammographic fatty tissue density, bilateral breasts; R92.1 Mammographic calcification found on diagnostic imaging of breast
CPT/HCPCS: 77063; 77067

== ENCOUNTER → 2024-11-07 09:31 | Outpatient (BNVA) | payer MEDICARE, MEDICAID, SELFPAY | PROVIDERS: PCP Family Medicine; Visit Provider Family Medicine | DX: R53.83 Other fatigue (principal); I10 Essential (primary) hypertension | CPT/HCPCS: 80053; 82607; 83735; 84443; 85025 ==

== ENCOUNTER → 2025-02-26 14:57 | Outpatient (BNVA) | payer MEDICARE, MEDICAID, SELFPAY | PROVIDERS: PCP Family Medicine; Visit Provider Internal Medicine | DX: I10 Essential (primary) hypertension (principal); Z87.891 Personal history of nicotine dependence | CPT/HCPCS: 99213 ==

== ENCOUNTER → 2025-06-30 09:46 | Outpatient (BNVA) | payer MEDICARE, MEDICAID, SELFPAY | PROVIDERS: PCP Family Medicine; Visit Provider Family Medicine | DX: I10 Essential (primary) hypertension (principal) | CPT/HCPCS: 80048; 80061 ==